=== PATIENT | male | born 1975 | race Caucasian/White ===

== ENCOUNTER 2020-08-02 08:16 | Emergency (ER) | payer MEDICAID ==
[~2020-08-02] VITALS: Ht 172.7 cm; Wt 157.1 kg
[2020-08-02 08:34] VITALS: BP 138/83
[2020-08-02] MEDS ORDERED: amoxicillin 250mg capsule PO ONE (09:05)
[2020-08-02] MEDS ORDERED: ibuprofen tablet 400 MG TABLET PO ONE (09:05)
[2020-08-02] MEDS ORDERED: ondansetron 4mg rapidly disintigrating tab PO ONE (09:05)
[2020-08-02] MEDS ORDERED: acetaminophen 325mg tablet PO ONE (09:05)
[2020-08-02] MEDS ORDERED: AMOX500C2 PO (09:06)
== END 2020-08-02 09:29 | disposition home or self-care (01) ==
LOC: ER 08:17
DX: K08.89 Other specified disorders of teeth and supporting structures (principal)
CPT/HCPCS: 99283